=== PATIENT | male | born 1940 | race Caucasian/White ===

== ENCOUNTER 2016-12-05 12:28 | Day surgery (SDC) | payer BC ==
[~2016-12-05 12:28] MED LIST: Acetaminophen TAB* 325 MG PO PRN; Buffered Lidocaine 0.9% SYRIN* 5 ML/SYR SYRINGE INTRADERM ONE
[2016-12-05] MEDS ORDERED: Midazolam* 1 MG/ML 2 ML VIAL (2 MG) ONE (14:19)
[2016-12-05] MEDS ORDERED: Neomycin/Polymy/Dex OPTH.SUSP* MAXITROL 0.1% 5 ML ONE (14:58)
[2016-12-05] MEDS ORDERED: Buffered Lidocaine 0.9% SYRIN* 5 ML/SYR SYRINGE ONE (14:58)
[2016-12-05] MEDS ORDERED: Lidocaine 1% MPF* 2 ML VIAL ONE (14:58)
[2016-12-05] MEDS ORDERED: Proparacaine 0.5% OPHTH.SOL* 15 ML BTL ONE (14:58)
[2016-12-05] MEDS ORDERED: Flurbiprofen 0.03% OPTH.SOL* 2.5 ML BTL ONE (14:58)
[2016-12-05] MEDS ORDERED: Cyclopentolate 1% OPTH.SOL* 2 ML BTL ONE (14:58)
[2016-12-05] MEDS ORDERED: acetaZOLAMIDE TAB* 250 MG ONE (14:58)
[2016-12-05] MEDS ORDERED: Povidone Iodine 5% OPTH* 30 ML BTL ONE (14:58)
[2016-12-05] MEDS ORDERED: Phenylephrine 2.5% OPTH.SOL* 2 ML BTL ONE (14:58)
[2016-12-05] MEDS ORDERED: Lidocaine 1.5% EPI 1:200,000* 30 ML SDV ONE (14:59)
[2016-12-05 15:11] VITALS: BP 121/60
--- NOTE | 2016-12-06 12:18 | OP ---
DATE OF OPERATION: 12/05/16 [facility] DATE OF : 36 SURGEON: Onel Keyes MD PREOPERATIVE DIAGNOSIS: Cataract, left eye. POSTOPERATIVE DIAGNOSIS: Cataract, left eye. OPERATIVE PROCEDURE: Phacoemulsification, left eye with IOL. DESCRIPTION OF PROCEDURE: The patient was brought to the operating room after being given 1/2% Alcaine with epinephrine drops in the preoperative area. The eye was prepped and draped in the usual sterile fashion. Sterile drape and eyelid speculum were placed. Again, topical 1/2% Alcaine with epinephrine was given. A paracentesis incision was made at the 3 o'clock position with the No.75 blade. Clear cornea incision 2.2 x 2.2-mm was created at the 6 o'clock position starting at the anterior limbus using the 2.2-mm keratome. The anterior chamber was irrigated with 0.4 mL of 1% non-preservative intracameral lidocaine and filled with DisCoVisc. A capsulorrhexis was completed using the cystotome and the Utrata forceps. Hydrodissection was performed with balanced salt solution. The lens nucleus was removed with the Phacoemulsification handpiece without incident. Cortex was removed with the irrigation-aspiration handpiece. The capsular bag was re-inflated using DisCoVisc and an [id number] implant was inserted with the shooter. The irrigation-aspiration handpiece was used to remove all residual DisCoVisc. The eye was refilled with balanced salt solution and the wound checked and found to be watertight. Topical Maxitrol drops were given. [id number]/[facility] #: [id number] [facility]
== END 2016-12-05 15:19 | disposition home or self-care (01) ==
LOC: OREAST 12:28
PROVIDERS: ATTEND Specialist
DX: H25.812 Combined forms of age-related cataract, left eye (principal); G20 Parkinson's disease; M33.20 Polymyositis, organ involvement unspecified
CPT/HCPCS: A9270-GY; J2250; V2632

== ENCOUNTER 2016-12-12 07:03 | Day surgery (SDC) | payer BC ==
[~2016-12-12 07:03] MED LIST changes: -Acetaminophen TAB* 325 MG PO PRN
[2016-12-12] MEDS ORDERED: Midazolam* 1 MG/ML 2 ML VIAL (2 MG) ONE (08:53)
[2016-12-12 09:30] VITALS: BP 156/64
[2016-12-12] MEDS ORDERED: Proparacaine 0.5% OPHTH.SOL* 15 ML BTL ONE (12:46)
[2016-12-12] MEDS ORDERED: Povidone Iodine 5% OPTH* 30 ML BTL ONE (12:46)
[2016-12-12] MEDS ORDERED: acetaZOLAMIDE TAB* 250 MG ONE (12:46)
[2016-12-12] MEDS ORDERED: Phenylephrine 2.5% OPTH.SOL* 2 ML BTL ONE (12:46)
[2016-12-12] MEDS ORDERED: Cyclopentolate 1% OPTH.SOL* 2 ML BTL ONE (12:46)
[2016-12-12] MEDS ORDERED: Neomycin/Polymy/Dex OPTH.SUSP* MAXITROL 0.1% 5 ML ONE (12:46)
[2016-12-12] MEDS ORDERED: Flurbiprofen 0.03% OPTH.SOL* 2.5 ML BTL ONE (12:46)
[2016-12-12] MEDS ORDERED: Lidocaine 1% MPF* 2 ML VIAL ONE (12:46)
[2016-12-12] MEDS ORDERED: Buffered Lidocaine 0.9% SYRIN* 5 ML/SYR SYRINGE ONE (12:46)
--- NOTE | 2016-12-12 16:28 | OP ---
DATE OF OPERATION: 12/12/16 - [facility] DATE OF : 36 SURGEON: Onel Keyes M.D. PREOPERATIVE DIAGNOSIS: Cataract right eye. POSTOPERATIVE DIAGNOSIS: Cataract right eye. OPERATIVE PROCEDURE: Phacoemulsification right eye with IOL. DESCRIPTION OF PROCEDURE: The patient was brought to the operating room after being given 1/2% Alcaine with epinephrine drops in the preoperative area. The eye was prepped and draped in the usual sterile fashion. Sterile drape and eyelid speculum were placed. Again, topical 1/2% Alcaine with epinephrine was given. A paracentesis incision was made at the 9 o'clock position with the No.75 blade. Clear cornea incision 2.2 x 2.2-mm was created at the 12 o'clock position starting at the anterior limbus using the 2.2-mm keratome. The anterior chamber was irrigated with 0.4 mL of 1% non-preservative intracameral lidocaine and filled with DisCoVisc. A capsulorrhexis was completed using the cystotome and the Utrata forceps. Hydrodissection was performed with balanced salt solution. The lens nucleus was removed with the Phacoemulsification handpiece without incident. Cortex was removed with the irrigation-aspiration handpiece. The capsular bag was re-inflated using DisCoVisc and an [id number] 17.5 implant was inserted with the shooter. The irrigation-aspiration handpiece was used to remove all residual DisCoVisc. The eye was refilled with balanced salt solution and the wound checked and found to be watertight. Topical Maxitrol drops were given. [id number]/[facility] #: [id number] [facility]
== END 2016-12-12 09:55 | disposition home or self-care (01) ==
LOC: OREAST 07:03
PROVIDERS: ATTEND Specialist
DX: H25.811 Combined forms of age-related cataract, right eye (principal); G20 Parkinson's disease; M33.20 Polymyositis, organ involvement unspecified
CPT/HCPCS: A9270-GY; J2250; V2632

== ENCOUNTER 2017-02-14 16:25 | Inpatient (IN) | payer BC, OTHER ==
[2017-02-14] MEDS ORDERED: NS 0.9% 1000 ML* 1,000 ML IV ONE (20:33)
[2017-02-14] MEDS ORDERED: cefTRIAXone VIAL(*) 1,000 MG in NS 0.9% 50 ML* 50 ML IVPB ONE (20:34)
[2017-02-14 20:51] LABS: Urine Bacteria 1+ (Absent); Urine Bilirubin Negative (Negative); Urine Glucose Negative (Negative); Urine Nitrite Negative (Negative)
[2017-02-14] MEDS ORDERED: cefTRIAXone(*) 1 GM ADVAN ONE (20:51)
[2017-02-14 21:05] LABS: Hematocrit 30 % (42-52); Hemoglobin 10.5 g/dl (14.0-18.0); Mean Corpuscular HGB Conc 35 g/dl (31-36); Mean Corpuscular Hemoglobin 33 pg (27-31); Mean Corpuscular Volume 95 fL (80-94); Mean Platelet Volume 8 um3 (7.4-10.4); Red Blood Count 3.16 10^6/ul (4.0-5.4); Red Cell Distribution Width 14 % (10.5-15); White Blood Count 10.2 10^3/ul (3.5-10.8)
[2017-02-14 21:13] LABS: Add Diff/Slide Review? Slide Review Added; Comments Flag Yes
[2017-02-14 21:20] LABS: Albumin 3.7 g/dL (3.2-5.2); BUN/Creatinine Ratio 13.8 (8-20); C Reactive Protein 141.45 mg/L (< 5.00); Calcium 8.9 mg/dL (8.6-10.3); EGFR African American 17.4 (>60); EGFR Non-African American 13.5 (>60); Globulin 2.9 g/dL (2-4); Potassium 4.2 mmol/L (3.5-5.0); Total Bilirubin 0.6 mg/dL (0.2-1.0); Total Protein 6.6 g/dL (6.4-8.9)
[2017-02-14] MEDS ORDERED: Acetaminophen TAB* 325 MG PO PRN (21:48)
[2017-02-14] MEDS ORDERED: CMCS:Melatonin (NF) 3 MG TAB PO PRN (21:49)
[2017-02-14] MEDS ORDERED: Ondansetron INJ* 2 MG/ML VIAL IV PRN (21:49)
--- NOTE | 2017-02-14 21:50 | ED ---
Andrade Johnson Rebecca, scribed for Mera Jennings MD on 02/14/17 at 2018 . GI/ HPI - HPI Summary HPI Summary: Pt is a 76 y/o M who presents to ED c/o urinary retention. Pt reports that he began experiencing difficulty urinating yesterday with no urine being produced. In the ED, pt had a figueroa put in place, which alleviated sx. Additionally c/o generalized weakness. Denies fever, chills and any pain. Pt was evaluated by Dr. Unger's office yesterday morning for sx and was given Rx for Bactrim of which he has taken 3 doses. No prior similar episodes of urinary retention and no difficulties with prostate enlargement. Is not on blood thinners but is on Methotrexate. - History of Current Complaint Chief Complaint: EDUrogenitalProblems Time Seen by Provider: 02/14/17 19:44 Stated Complaint: UNABLE TO URINATE Hx Obtained From: Patient Onset/Duration: Started Days Ago - Yesterday, Resolved - by figueroa Current Severity: None Pain Intensity: 0 Associated Signs and Symptoms: Positive: Weakness - generalized, Other: - Difficulty urinating. 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 APPENDECTOMY 1952. DEEP BRAIN STIMULATION 2014 [facility] Anesthesia Reactions: No Infectious Disease History: Yes Infectious Disease History: Reports: Hx Hepatitis - A CHILD UNSURE Denies: Hx Human Immunodeficiency Virus (HIV), Traveled Outside the [place] in Last 30 Days - Family History Known Family History: Positive: Hypertension, Other - NO FHx prostate problems - Social History Lives: With Family Alcohol Use: None Substance Use Type: Reports: None Smoking Status (MU): Never Smoked Tobacco Review of Systems Positive: Other - Generazlied weakness. Negative: Fever, Chills Positive: other - Difficulty urinating. Negative: pain All Other Systems Reviewed And Are Negative: Yes Physical Exam - Summary Physical Exam Summary: General: Well appearing, no pain distress, slightly weak getting up Skin: Warm, Skin Color Reflects Adequate Perfusion, Dry Eyes: EOMI, SEGUN ENT: Pharynx normal, TMs normal Neck: Supple, nontender Respiratory: CTA, breath sounds present, no rhonchi, no wheezes, no rales Cardiovascular: RRR, no murmur, no rub, no gallop Abdomen: Soft, nontender, Non-distended, no guarding, no rebound Bowel: Present Musculoskeletal: MIKHAIL, No edema Neuro: Sensory/motor intact, A&Ox3, CN intact 2-12 Psych: Affect/mood appropriate Triage Information Reviewed: Yes Vital Signs On Initial Exam: Initial Vitals Temp Pulse Resp BP Pulse Ox 97.1 F 68 20 106/58 95 02/14/17 16:36 02/14/17 16:36 02/14/17 16:36 02/14/17 16:36 02/14/17 16:36 Vital Signs Reviewed: Yes Diagnostics - Vital Signs Vital Signs Temp Pulse Resp BP Pulse Ox 02/14/17 16:36 97.1 F 68 20 106/58 95 - Laboratory Lab Results: Lab Results 02/14/17 02/14/17 02/14/17 Range/Units 20:13 20:55 20:55 WBC 10.2 (3.5-10.8) 10^3/ul RBC 3.16 L (4.0-5.4) 10^6/ul Hgb 10.5 L (14.0-18.0) g/dl Hct 30 L (42-52) % MCV 95 H (80-94) fL MCH 33 H (27-31) pg MCHC 35 (31-36) g/dl RDW 14 (10.5-15) % Plt Count 204 (150-450) 10^3/ul MPV 8 (7.4-10.4) um3 Neut % (Auto) 85.2 H (38-83) % Lymph % (Auto) 7.2 L (25-47) % [place] % (Auto) 6.4 (1-9) % Eos % (Auto) 0.5 (0-6) % Baso % (Auto) 0.7 (0-2) % Absolute Neuts (auto) 8.7 H (1.5-7.7) 10^3/ul Absolute Lymphs (auto) 0.7 L (1.0-4.8) 10^3/ul Absolute Monos (auto) 0.7 (0-0.8) 10^3/ul Absolute Eos (auto) 0.1 (0-0.6) 10^3/ul Absolute Basos (auto) 0.1 (0-0.2) 10^3/ul Absolute Nucleated RBC 0 10^3/ul Nucleated RBC % 0 Sodium 134 (133-145) mmol/L Potassium 4.2 (3.5-5.0) mmol/L Chloride 103 (101-111) mmol/L Carbon Dioxide 20 L (22-32) mmol/L Anion Gap 11 (2-11) mmol/L BUN 59 H (6-24) mg/dL Creatinine 4.28 H (0.67-1.17) mg/dL Est GFR ( Amer) 17.4 (>60) Est GFR (Non-Af Amer) 13.5 (>60) BUN/Creatinine Ratio 13.8 (8-20) Glucose 100 (70-100) mg/dL Lactic Acid (0.5-2.0) mmol/L Calcium 8.9 (8.6-10.3) mg/dL Total Bilirubin 0.60 (0.2-1.0) mg/dL AST 15 (13-39) U/L ALT 3 L (7-52) U/L Alkaline Phosphatase 35 (34-104) U/L C-Reactive Protein 141.45 H (< 5.00) mg/L Total Protein 6.6 (6.4-8.9) g/dL Albumin 3.7 (3.2-5.2) g/dL Globulin 2.9 (2-4) g/dL Albumin/Globulin Ratio 1.3 (1-3) Urine Color Straw Urine Appearance Clear Urine pH 5.0 (5-9) Ur Specific [place] 1.004 L (1.010-1.030) Urine Protein Negative (Negative) Urine Ketones Negative (Negative) Urine Blood 3+ H (Negative) Urine Nitrate Negative (Negative) Urine Bilirubin Negative (Negative) Urine Urobilinogen Negative (Negative) Ur Leukocyte Esterase Trace H (Negative) Urine WBC (Auto) 1+(6-10/hpf) H (Absent) Urine RBC (Auto) 2+(6-10/hpf) H (Absent) Urine Bacteria 1+ H (Absent) Urine Glucose Negative (Negative) 02/14/17 Range/Units 20:55 WBC (3.5-10.8) 10^3/ul RBC (4.0-5.4) 10^6/ul Hgb (14.0-18.0) g/dl Hct (42-52) % MCV (80-94) fL MCH (27-31) pg MCHC (31-36) g/dl RDW (10.5-15) % Plt Count (150-450) 10^3/ul MPV (7.4-10.4) um3 Neut % (Auto) (38-83) % Lymph % (Auto) (25-47) % [place] % (Auto) (1-9) % Eos % (Auto) (0-6) % Baso % (Auto) (0-2) % Absolute Neuts (auto) (1.5-7.7) 10^3/ul Absolute Lymphs (auto) (1.0-4.8) 10^3/ul Absolute Monos (auto) (0-0.8) 10^3/ul Absolute Eos (auto) (0-0.6) 10^3/ul Absolute Basos (auto) (0-0.2) 10^3/ul Absolute Nucleated RBC 10^3/ul Nucleated RBC % Sodium (133-145) mmol/L Potassium (3.5-5.0) mmol/L Chloride (101-111) mmol/L Carbon Dioxide (22-32) mmol/L Anion Gap (2-11) mmol/L BUN (6-24) mg/dL Creatinine (0.67-1.17) mg/dL Est GFR ( Amer) (>60) Est GFR (Non-Af Amer) (>60) BUN/Creatinine Ratio (8-20) Glucose (70-100) mg/dL Lactic Acid 0.5 (0.5-2.0) mmol/L Calcium (8.6-10.3) mg/dL Total Bilirubin (0.2-1.0) mg/dL AST (13-39) U/L ALT (7-52) U/L Alkaline Phosphatase (34-104) U/L C-Reactive Protein (< 5.00) mg/L Total Protein (6.4-8.9) g/dL Albumin (3.2-5.2) g/dL Globulin (2-4) g/dL Albumin/Globulin Ratio (1-3) Urine Color Urine Appearance Urine pH (5-9) Ur Specific [place] (1.010-1.030) Urine Protein (Negative) Urine Ketones (Negative) Urine Blood (Negative) Urine Nitrate (Negative) Urine Bilirubin (Negative) Urine Urobilinogen (Negative) Ur Leukocyte Esterase (Negative) Urine WBC (Auto) (Absent) Urine RBC (Auto) (Absent) Urine Bacteria (Absent) Urine Glucose (Negative) Result Diagrams: 02/14/17 20:55 02/14/17 20:55 Lab Statement: Any lab studies that have been ordered have been reviewed, and results considered in the medical decision making process. Re-Evaluation - Re-Evaluation First Eval Re-Evaluation Time: 21:30 Comment: Discussed plan to admit with the pt and his . The pt is feeling well. GIGU Course/Dx - Course Course Of Treatment: 76 yo in acute renal failure due to urinary obstruction, case discussed with Dr. Schultz who will keep the pt - Diagnoses Provider Diagnoses: Renal failure - Physician Notifications Discussed Care Of Patient With: Osmar Schultz Time Discussed With Above Provider: 21:30 Instructed by Provider To: Other - Accepts pt for admission Discharge - Discharge Plan Condition: Stable Disposition: ADMITTED TO [facility] Referrals: Mauricio Unger MD [Primary Care Provider] - The documentation as recorded by the Andrade chowdhury Rebecca accurately reflects the service I personally performed and the decisions made by me, Mera Jennings MD.
[2017-02-14] MEDS: NS 0.9% 1000 ML* 1,000 ML IV SCH (23:39)
[2017-02-15 00:46] LABS: Hematocrit 28 % (42-52); Hemoglobin 9.4 g/dl (14.0-18.0)
[2017-02-15] MEDS: Carbidopa/Levodop CR 50/200(*) TAB.CR PO SCH ×3 (01:12→20:43)
--- NOTE | 2017-02-15 04:58 | HP ---
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 He became unable to urinate at all today around 1400 and returned to his PCP's office where a bladder scan found urinary retention volume of ~1600 prompting referral to [facility]. He denies F/C, sweats, or other issues. He denies HX of similar. A figueroa was placed during triage yielding 1800cc of urine, since emptied. Upon my arrival, his figueroa bag contained another 2100cc. PMedHx Parkinsonism w/ deep brain stimulator implantation polymyositis depression erectile dysfunction Ambulatory Orders Carbidopa/Levodop 25/100 MG(*) 1.5 tab PO QID 01/15/15 Carbidopa/Levodop 25/100 MG(*) [Sinemet 25/100 TAB(*)] 1 tab PO 0900 01/15/15 Folic Acid 1 mg PO DAILY 01/15/15 Methotrexate TAB* 2.5 mg PO WEEKLY 01/15/15 Multiple Vitamin 1 tab PO ONCE 01/15/15 Oxycodone W/ Acetaminophen [Oxycodone/Acetaminophen] 5 - 325 mg PO Q6H PRN 01/15 Rasagiline (NF) [Azilect (NF)] 1 mg PO DAILY 01/15/15 Ropinirole Hydrochloride [Ropinirole HCl] 2 mg PO QID 01/15/15 Sertraline HCl [Zoloft] 50 mg PO DAILY 11/30/16 Sildenafil (NF) [Viagra (NF)] 50 mg PO DAILY 11/30/16 Mtkrbxjio-Rjerrbxy-Pissudjamx [Carbidopa/Levodopa/Entaca 50-200-200 mg] 1 tab PO BEDTIME 02/14/17 Carbidopa/Levodop 25/100 MG(*) 25 - 100 mg PO AC 02/15/17 Allergies No Known Allergies Allergy (Verified 12/12/16 07:39) PSurgHx deep brain stimulator implantation OU cataract extractions appendecomy L-spine surgery SocHx: no tobacco, alcohol, or recreational drugs; lives with his ; 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; full code status FamHx: unknown ROS: as above, otherwise reviewed and all were negative vitals: Vital Signs Temp 36.8 C 02/15/17 02:58 Pulse 66 02/15/17 02:58 Resp 16 02/15/17 02:58 BP 137/50 02/15/17 02:58 Pulse Ox 96 02/15/17 02:58 Intake & Output 02/14/17 02/14/17 02/15/17 11:59 23:59 11:59 Intake Total 1050 Output Total 2150 Balance -1100 Weight 68.447 kg Intake: IV Fluids 1000 IVPB 50 Output: Figueroa 2150 Constitutional: NAD, normally developed, overweight elderly white male HEENM: atraumatic; sclera/conjunctiva: non-icteric/clear; hearing: clinically intact; oropharynx: clear, mucosa moist Neck: soft tissue: normal; thyroid: normal Pulmonary: clear to auscultation bilaterally, good aeration, no accessory muscle use CV: RR/RR, normal S1S2, no carotid bruit, no jugular venous distention, 2+ B DP/ PT, no edema Abdominal: soft, non-distended, non-tender, no rebound/guarding/rigidity, normoactive bowel sounds, no hepatosplenomegaly or masses, no costovertebral angle tenderness Musculoskeletal: general: grossly intact; gait: stable Integumental: normal appearance and texture of exposed skin Psychiatric orientation: AA&O to PPS affect: calm mood: pleasant eye contact: good content: reliable responses: timely insight: good Testing: Lab Results 02/14/17 02/14/17 02/14/17 Range/Units 20:13 20:55 20:55 WBC 10.2 (3.5-10.8) 10^3/ul RBC 3.16 L (4.0-5.4) 10^6/ul Hgb 10.5 L (14.0-18.0) g/dl Hct 30 L (42-52) % MCV 95 H (80-94) fL MCH 33 H (27-31) pg MCHC 35 (31-36) g/dl RDW 14 (10.5-15) % Plt Count 204 (150-450) 10^3/ul MPV 8 (7.4-10.4) um3 Neut % (Auto) 85.2 H (38-83) % Lymph % (Auto) 7.2 L (25-47) % [place] % (Auto) 6.4 (1-9) % Eos % (Auto) 0.5 (0-6) % Baso % (Auto) 0.7 (0-2) % Absolute Neuts (auto) 8.7 H (1.5-7.7) 10^3/ul Absolute Lymphs (auto) 0.7 L (1.0-4.8) 10^3/ul Absolute Monos (auto) 0.7 (0-0.8) 10^3/ul Absolute Eos (auto) 0.1 (0-0.6) 10^3/ul Absolute Basos (auto) 0.1 (0-0.2) 10^3/ul Absolute Nucleated RBC 0 10^3/ul Nucleated RBC % 0 Sodium 134 (133-145) mmol/L Potassium 4.2 (3.5-5.0) mmol/L Chloride 103 (101-111) mmol/L Carbon Dioxide 20 L (22-32) mmol/L Anion Gap 11 (2-11) mmol/L BUN 59 H (6-24) mg/dL Creatinine 4.28 H (0.67-1.17) mg/dL Est GFR ( Amer) 17.4 (>60) Est GFR (Non-Af Amer) 13.5 (>60) BUN/Creatinine Ratio 13.8 (8-20) Glucose 100 (70-100) mg/dL Lactic Acid (0.5-2.0) mmol/L Calcium 8.9 (8.6-10.3) mg/dL Total Bilirubin 0.60 (0.2-1.0) mg/dL AST 15 (13-39) U/L ALT 3 L (7-52) U/L Alkaline Phosphatase 35 (34-104) U/L C-Reactive Protein 141.45 H (< 5.00) mg/L Total Protein 6.6 (6.4-8.9) g/dL Albumin 3.7 (3.2-5.2) g/dL Globulin 2.9 (2-4) g/dL Albumin/Globulin Ratio 1.3 (1-3) Urine Color Straw Urine Appearance Clear Urine pH 5.0 (5-9) Ur Specific [place] 1.004 L (1.010-1.030) Urine Protein Negative (Negative) Urine Ketones Negative (Negative) Urine Blood 3+ H (Negative) Urine Nitrate Negative (Negative) Urine Bilirubin Negative (Negative) Urine Urobilinogen Negative (Negative) Ur Leukocyte Esterase Trace H (Negative) Urine WBC (Auto) 1+(6-10/hpf) H (Absent) Urine RBC (Auto) 2+(6-10/hpf) H (Absent) Urine Bacteria 1+ H (Absent) Urine Glucose Negative (Negative) 02/14/17 02/15/17 Range/Units 20:55 00:34 WBC (3.5-10.8) 10^3/ul RBC (4.0-5.4) 10^6/ul Hgb 9.4 L (14.0-18.0) g/dl Hct 28 L (42-52) % MCV (80-94) fL MCH (27-31) pg MCHC (31-36) g/dl RDW (10.5-15) % Plt Count (150-450) 10^3/ul MPV (7.4-10.4) um3 Neut % (Auto) (38-83) % Lymph % (Auto) (25-47) % [place] % (Auto) (1-9) % Eos % (Auto) (0-6) % Baso % (Auto) (0-2) % Absolute Neuts (auto) (1.5-7.7) 10^3/ul Absolute Lymphs (auto) (1.0-4.8) 10^3/ul Absolute Monos (auto) (0-0.8) 10^3/ul Absolute Eos (auto) (0-0.6) 10^3/ul Absolute Basos (auto) (0-0.2) 10^3/ul Absolute Nucleated RBC 10^3/ul Nucleated RBC % Sodium (133-145) mmol/L Potassium (3.5-5.0) mmol/L Chloride (101-111) mmol/L Carbon Dioxide (22-32) mmol/L Anion Gap (2-11) mmol/L BUN (6-24) mg/dL Creatinine (0.67-1.17) mg/dL Est GFR ( Amer) (>60) Est GFR (Non-Af Amer) (>60) BUN/Creatinine Ratio (8-20) Glucose (70-100) mg/dL Lactic Acid 0.5 (0.5-2.0) mmol/L Calcium (8.6-10.3) mg/dL Total Bilirubin (0.2-1.0) mg/dL AST (13-39) U/L ALT (7-52) U/L Alkaline Phosphatase (34-104) U/L C-Reactive Protein (< 5.00) mg/L Total Protein (6.4-8.9) g/dL Albumin (3.2-5.2) g/dL Globulin (2-4) g/dL Albumin/Globulin Ratio (1-3) Urine Color Urine Appearance Urine pH (5-9) Ur Specific [place] (1.010-1.030) Urine Protein (Negative) Urine Ketones (Negative) Urine Blood (Negative) Urine Nitrate (Negative) Urine Bilirubin (Negative) Urine Urobilinogen (Negative) Ur Leukocyte Esterase (Negative) Urine WBC (Auto) (Absent) Urine RBC (Auto) (Absent) Urine Bacteria (Absent) Urine Glucose (Negative) Impression: 76M presenting with acute renal failure 2nd acute urinary retention 2nd combined Parkinsonism, BPH, & acute cystitis developing post-obstructive diuresis DIAGNOSIS & PLAN Primary acute renal failure 2nd acute urinary retention 2nd combined Parkinsonism, BPH, & acute cystitis : developing post-obstructive diuresis : 4H urine total divided by 4, set IVF to this number Q4H : IVFs as above : ceftriaxone IV : terazosin 5mg HS : finasteride 5mg QAM : figueroa to gravity, nursing education re: figueroa care : outpatient follow up with urology : urine CX : supportive care Secondary Parkinsonism w/ deep brain stimulator implantation : continue carbo/levodopa : continue ropinirole polymyositis : hold methotrexate 02/15 2nd acute cystitis to avoid further immunosuppression depression : continue sertraline Admission Rational: observation for post-obstructive diuresis DVTp: heparin SQ Code Status: full HCP:
[2017-02-15] MEDS: Omeprazole CAP* 20 MG PO SCH (05:48)
[2017-02-15] MEDS: rOPINIRole TAB* 1 MG PO SCH ×4 (05:49→17:33)
[2017-02-15] MEDS: Carbidopa/Levodop 25/100 MG TAB(*) PO SCH ×5 (05:49→17:33)
[2017-02-15] MEDS: Heparin VIAL(*) 5000 UNITS/ML VIAL (FIVE THOUSAND) SUBCUT SCH ×3 (05:52→20:43)
[2017-02-15 06:09] LABS: Hematocrit 29 % (42-52); Hemoglobin 9.9 g/dl (14.0-18.0); Mean Corpuscular HGB Conc 35 g/dl (31-36); Mean Corpuscular Hemoglobin 33 pg (27-31); Mean Corpuscular Volume 95 fL (80-94); Mean Platelet Volume 8 um3 (7.4-10.4); Red Cell Distribution Width 14 % (10.5-15); White Blood Count 7.1 10^3/ul (3.5-10.8)
[2017-02-15 06:23] LABS: BUN/Creatinine Ratio 15.2 (8-20); Calcium 8.2 mg/dL (8.6-10.3); EGFR African American 23.5 (>60); EGFR Non-African American 18.3 (>60); Potassium 4.5 mmol/L (3.5-5.0)
[2017-02-15] MEDS: LEVODOPA PO SCH (08:58)
[2017-02-15] MEDS: CARBIDOPA PO SCH (08:58)
[2017-02-15] MEDS: Finasteride TAB* 5 MG PO SCH (08:58)
[2017-02-15] MEDS: NS 0.9% 1000 ML* 1,000 ML IV SCH (11:51)
--- NOTE | 2017-02-15 17:29 | PN ---
Subjective Date of Service: 02/15/17 Interval History: Patient seen and examined at bedside. Pt states that he is feeling well. Denies fever, chills, shortness of breath, chest discomfort, N/V/D. Family History: Unchanged from Admission Social History: Unchanged from Admission Past Medical History: Unchanged from Admission Objective Active Medications: Acetaminophen (Tylenol Tab*) 650 mg PO Q6H PRN Reason: FEVER/PAIN Carbidopa/Levodopa (Sinemet 25/100 Tab(*)) 1.5 tab PO 0600,1200,1500,1800 NIKHIL Carbidopa/Levodopa (Sinemet Cr 50/200(*)) 1 tab.cr PO BEDTIME NIKHIL Carbidopa/Levodopa (Sinemet 25/100 Tab(*)) 1 tab PO DAILY@0900 NIKHIL Finasteride (Proscar Tab*) 5 mg PO DAILY NIKHIL Heparin Sodium (Porcine) (Heparin Vial(*)) 5,000 units SUBCUT Q8HR NIKHIL Sodium Chloride (Ns 0.9% 1000 Ml*) 1,000 mls @ 75 mls/hr IV PER RATE NIKHIL Ceftriaxone Sodium 1,000 mg/ (Sodium Chloride) 50 mls @ 200 mls/hr IVPB Q24H NIKHIL Melatonin (Melatonin (Nf)) 3 mg PO BEDTIME PRN; Protocol Reason: Sleep Pto Non Formulary Med (Carbidopa/Levodopa Er 25/100mg ) 1 dose PO DAILY@0730 NIKHIL Omeprazole (Prilosec Cap*) 20 mg PO DAILY@0600 NIKHIL Ondansetron HCl (Zofran Inj*) 4 mg IV Q6H PRN Reason: NAUSEA Ropinirole HCl (Requip Tab*) 2 mg PO 0600,1200,1500,1800 NIKHIL Terazosin HCl (Hytrin Cap*) 5 mg PO BEDTIME NIKHIL Vital Signs 02/15/17 15:20 Temperature 98.1 F Pulse Rate 84 Respiratory 16 Rate Blood Pressure 138/58 (mmHg) O2 Sat by Pulse 99 Oximetry Oxygen Devices in Use Now: None Appearance: NAD, laying in bed Ears/Nose/Mouth/Throat: Mucous Membranes Moist Respiratory: Symmetrical Chest Expansion and Respiratory Effort, Clear to Auscultation Cardiovascular: NL Sounds; No Murmurs; No JVD, RRR Abdominal: NL Sounds; No Tenderness; No Distention Extremities: No Edema Skin: No Rash or Ulcers Neurological: Alert and Oriented x 3, NL Muscle Strength and Tone Lines/Tubes/Other Access: Clean, Dry and Intact Martinez - patent, draining clear yellow urine Nutrition: Taking PO's Result Diagrams: 02/15/17 05:28 02/15/17 05:28 Assess/Plan/Problems-Billing Assessment: Mr. Byers is a 76 yo male with PMH significant for parkinson's disease, polymyositis, BPH and depression who presented to the emergency room with complaints of increased difficulty with urination and was found to have acute renal failure secondary to urinary retention. - Patient Problems (1) Acute renal failure Comment: - Suspect secondary to parkinsonism, BPH, and cystitis - Also with post-obstructive diuresis - Creatinine slowly improving - Continue IVFs and urinary cathter - Continue ceftriaxone, terazosin and finasteride - Will need to follow-up with urology outpatient (2) Urinary retention Code(s): R33.9 - RETENTION OF URINE, UNSPECIFIED SNOMED Code(s): 227937698 Comment: - Suspect secondary to parkinsonism, BPH, and cystitis - Continue urinary cathter - Continue terazosin and finasteride - Outpatient urology follow-up (3) UTI (urinary tract infection) Comment: - No leukocytosis and afebrile - Urine culture and blood cultures pending - Continue ceftriaxone (4) Parkinson disease Code(s): G20 - PARKINSON'S DISEASE SNOMED Code(s): 70226596 Comment: - With deep brain stimulator implantation - Continue Sinmet and ropinirole (5) Polymyositis Code(s): M33.20 - POLYMYOSITIS, ORGAN INVOLVEMENT UNSPECIFIED SNOMED Code(s): 83321110 Comment: - Hold methotrexate secondary to acute cystitis (6) Depression Code(s): F32.9 - MAJOR DEPRESSIVE DISORDER, SINGLE EPISODE, UNSPECIFIED SNOMED Code(s): 26054537 Comment: - Continue sertraline (7) DVT prophylaxis Code(s): DGX0227 - SNOMED Code(s): 025963906 Comment: - SQ heparin (8) Full code status Code(s): Z78.9 - OTHER SPECIFIED HEALTH STATUS SNOMED Code(s): 623853125 Status and Disposition: Inpatient. Discharge to home when medically stable, possibly in the AM if renal function is improving.
[2017-02-15] MEDS ORDERED: cefTRIAXone VIAL(*) 1,000 MG in NS 0.9% 50 ML* 50 ML IVPB SCH (20:30)
[2017-02-15] MEDS ORDERED: Terazosin CAP* 5 MG PO SCH (21:00)
[2017-02-16] MEDS: NS 0.9% 1000 ML* 1,000 ML IV SCH ×2 (00:23→07:52)
[2017-02-16] MEDS: rOPINIRole TAB* 1 MG PO SCH (05:45)
[2017-02-16] MEDS: Carbidopa/Levodop 25/100 MG TAB(*) PO SCH ×2 (05:46→09:31)
[2017-02-16] MEDS: Omeprazole CAP* 20 MG PO SCH (05:47)
[2017-02-16] MEDS: Heparin VIAL(*) 5000 UNITS/ML VIAL (FIVE THOUSAND) SUBCUT SCH (05:47)
[2017-02-16 07:07] LABS: Hematocrit 28 % (42-52); Hemoglobin 9.4 g/dl (14.0-18.0); Mean Corpuscular HGB Conc 34 g/dl (31-36); Mean Corpuscular Hemoglobin 33 pg (27-31); Mean Corpuscular Volume 97 fL (80-94); Mean Platelet Volume 8 um3 (7.4-10.4); Red Blood Count 2.87 10^6/ul (4.0-5.4); Red Cell Distribution Width 13 % (10.5-15); White Blood Count 5.3 10^3/ul (3.5-10.8)
[2017-02-16 07:16] LABS: BUN/Creatinine Ratio 18.8 (8-20); Calcium 8.1 mg/dL (8.6-10.3); Potassium 4.6 mmol/L (3.5-5.0)
[2017-02-16 07:33] VITALS: BP 137/54
[2017-02-16] MEDS: CARBIDOPA PO SCH (07:53)
[2017-02-16] MEDS: LEVODOPA PO SCH (07:53)
[2017-02-16] MEDS: Finasteride TAB* 5 MG PO SCH (09:31)
--- NOTE | 2017-02-16 10:04 | PN ---
Subjective Date of Service: 02/16/17 Interval History: Pt is feeling well. He wants to go home. He has not yet had the figueroa teaching. We reviewed the course of action over the next couple weeks. He denies any abdominal pain or diarrhea. No CP or SOB. Family History: Unchanged from Admission Social History: Unchanged from Admission Past Medical History: Unchanged from Admission Objective Active Medications: Acetaminophen (Tylenol Tab*) 650 mg PO Q6H PRN PRN Reason: FEVER/PAIN Carbidopa/Levodopa (Sinemet 25/100 Tab(*)) 1.5 tab PO 0600,1200,1500,1800 [facility] Last Admin: 02/16/17 05:46 Dose: 1.5 tab Carbidopa/Levodopa (Sinemet Cr 50/200(*)) 1 tab.cr PO BEDTIME [facility] Last Admin: 02/15/17 20:43 Dose: 1 tab.cr Carbidopa/Levodopa (Sinemet 25/100 Tab(*)) 1 tab PO DAILY@0900 [facility] Last Admin: 02/16/17 09:31 Dose: 1 tab Finasteride (Proscar Tab*) 5 mg PO DAILY [facility] Last Admin: 02/16/17 09:31 Dose: 5 mg Heparin Sodium (Porcine) (Heparin Vial(*)) 5,000 units SUBCUT Q8HR [facility] Last Admin: 02/16/17 05:47 Dose: 5,000 units Sodium Chloride (Ns 0.9% 1000 Ml*) 1,000 mls @ 100 mls/hr IV PER RATE [facility] Last Admin: 02/16/17 07:52 Dose: 175 mls/hr Ceftriaxone Sodium 1,000 mg/ (Sodium Chloride) 50 mls @ 200 mls/hr IVPB Q24H [facility] Last Admin: 02/15/17 20:41 Dose: 200 mls/hr Melatonin (Melatonin (Nf)) 3 mg PO BEDTIME PRN; Protocol PRN Reason: Sleep Pto Non Formulary Med (Carbidopa/Levodopa Er 25/100mg ) 1 dose PO DAILY@0730 [facility] Last Admin: 02/16/17 07:53 Dose: 1 dose Omeprazole (Prilosec Cap*) 20 mg PO DAILY@0600 [facility] Last Admin: 02/16/17 05:47 Dose: 20 mg Ondansetron HCl (Zofran Inj*) 4 mg IV Q6H PRN PRN Reason: NAUSEA Ropinirole HCl (Requip Tab*) 2 mg PO 0600,1200,1500,1800 [facility] Last Admin: 02/16/17 05:45 Dose: 2 mg Terazosin HCl (Hytrin Cap*) 5 mg PO BEDTIME [facility] Last Admin: 02/15/17 20:43 Dose: 5 mg Vital Signs 02/15/17 02/15/17 02/15/17 15:20 19:19 20:00 Temperature 98.1 F 97.5 F Pulse Rate 84 69 Respiratory 16 20 16 Rate Blood Pressure 138/58 112/38 (mmHg) O2 Sat by Pulse 99 98 Oximetry 02/15/17 02/16/17 02/16/17 23:37 03:18 07:32 Temperature 97.9 F 97.6 F 97.6 F Pulse Rate 67 79 69 Respiratory 14 16 17 Rate Blood Pressure 120/51 103/59 137/54 (mmHg) O2 Sat by Pulse 97 99 97 Oximetry 02/16/17 08:00 Temperature Pulse Rate Respiratory 16 Rate Blood Pressure (mmHg) O2 Sat by Pulse Oximetry Oxygen Devices in Use Now: None Appearance: Elderly male sitting up in bed, NAD, mild rest tremor noted. Eyes: No Scleral Icterus Ears/Nose/Mouth/Throat: Mucous Membranes Moist Respiratory: Symmetrical Chest Expansion and Respiratory Effort, Clear to Auscultation Cardiovascular: NL Sounds; No Murmurs; No JVD, RRR, No Edema Abdominal: NL Sounds; No Tenderness; No Distention Extremities: No Clubbing, Cyanosis Skin: No Rash or Ulcers, No Nodules or Sclerosis Neurological: Alert and Oriented x 3 Result Diagrams: 02/16/17 06:17 02/16/17 06:17 Additional Lab and Data: Lab Results 02/14/17 02/14/17 02/14/17 Range/Units 20:13 20:55 20:55 WBC 10.2 (3.5-10.8) 10^3/ul RBC 3.16 L (4.0-5.4) 10^6/ul Hgb 10.5 L (14.0-18.0) g/dl Hct 30 L (42-52) % MCV 95 H (80-94) fL MCH 33 H (27-31) pg MCHC 35 (31-36) g/dl RDW 14 (10.5-15) % Plt Count 204 (150-450) 10^3/ul MPV 8 (7.4-10.4) um3 Neut % (Auto) 85.2 H (38-83) % Lymph % (Auto) 7.2 L (25-47) % [place] % (Auto) 6.4 (1-9) % Eos % (Auto) 0.5 (0-6) % Baso % (Auto) 0.7 (0-2) % Absolute Neuts (auto) 8.7 H (1.5-7.7) 10^3/ul Absolute Lymphs (auto) 0.7 L (1.0-4.8) 10^3/ul Absolute Monos (auto) 0.7 (0-0.8) 10^3/ul Absolute Eos (auto) 0.1 (0-0.6) 10^3/ul Absolute Basos (auto) 0.1 (0-0.2) 10^3/ul Absolute Nucleated RBC 0 10^3/ul Nucleated RBC % 0 Sodium 134 (133-145) mmol/L Potassium 4.2 (3.5-5.0) mmol/L Chloride 103 (101-111) mmol/L Carbon Dioxide 20 L (22-32) mmol/L Anion Gap 11 (2-11) mmol/L BUN 59 H (6-24) mg/dL Creatinine 4.28 H (0.67-1.17) mg/dL Est GFR ( Amer) 17.4 (>60) Est GFR (Non-Af Amer) 13.5 (>60) BUN/Creatinine Ratio 13.8 (8-20) Glucose 100 (70-100) mg/dL Lactic Acid (0.5-2.0) mmol/L Calcium 8.9 (8.6-10.3) mg/dL Total Bilirubin 0.60 (0.2-1.0) mg/dL AST 15 (13-39) U/L ALT 3 L (7-52) U/L Alkaline Phosphatase 35 (34-104) U/L C-Reactive Protein 141.45 H (< 5.00) mg/L Total Protein 6.6 (6.4-8.9) g/dL Albumin 3.7 (3.2-5.2) g/dL Globulin 2.9 (2-4) g/dL Albumin/Globulin Ratio 1.3 (1-3) Urine Color Straw Urine Appearance Clear Urine pH 5.0 (5-9) Ur Specific [place] 1.004 L (1.010-1.030) Urine Protein Negative (Negative) Urine Ketones Negative (Negative) Urine Blood 3+ H (Negative) Urine Nitrate Negative (Negative) Urine Bilirubin Negative (Negative) Urine Urobilinogen Negative (Negative) Ur Leukocyte Esterase Trace H (Negative) Urine WBC (Auto) 1+(6-10/hpf) H (Absent) Urine RBC (Auto) 2+(6-10/hpf) H (Absent) Urine Bacteria 1+ H (Absent) Urine Glucose Negative (Negative) 02/14/17 Range/Units 20:55 WBC (3.5-10.8) 10^3/ul RBC (4.0-5.4) 10^6/ul Hgb (14.0-18.0) g/dl Hct (42-52) % MCV (80-94) fL MCH (27-31) pg MCHC (31-36) g/dl RDW (10.5-15) % Plt Count (150-450) 10^3/ul MPV (7.4-10.4) um3 Neut % (Auto) (38-83) % Lymph % (Auto) (25-47) % [place] % (Auto) (1-9) % Eos % (Auto) (0-6) % Baso % (Auto) (0-2) % Absolute Neuts (auto) (1.5-7.7) 10^3/ul Absolute Lymphs (auto) (1.0-4.8) 10^3/ul Absolute Monos (auto) (0-0.8) 10^3/ul Absolute Eos (auto) (0-0.6) 10^3/ul Absolute Basos (auto) (0-0.2) 10^3/ul Absolute Nucleated RBC 10^3/ul Nucleated RBC % Sodium (133-145) mmol/L Potassium (3.5-5.0) mmol/L Chloride (101-111) mmol/L Carbon Dioxide (22-32) mmol/L Anion Gap (2-11) mmol/L BUN (6-24) mg/dL Creatinine (0.67-1.17) mg/dL Est GFR ( Amer) (>60) Est GFR (Non-Af Amer) (>60) BUN/Creatinine Ratio (8-20) Glucose (70-100) mg/dL Lactic Acid 0.5 (0.5-2.0) mmol/L Calcium (8.6-10.3) mg/dL Total Bilirubin (0.2-1.0) mg/dL AST (13-39) U/L ALT (7-52) U/L Alkaline Phosphatase (34-104) U/L C-Reactive Protein (< 5.00) mg/L Total Protein (6.4-8.9) g/dL Albumin (3.2-5.2) g/dL Globulin (2-4) g/dL Albumin/Globulin Ratio (1-3) Urine Color Urine Appearance Urine pH (5-9) Ur Specific [place] (1.010-1.030) Urine Protein (Negative) Urine Ketones (Negative) Urine Blood (Negative) Urine Nitrate (Negative) Urine Bilirubin (Negative) Urine Urobilinogen (Negative) Ur Leukocyte Esterase (Negative) Urine WBC (Auto) (Absent) Urine RBC (Auto) (Absent) Urine Bacteria (Absent) Urine Glucose (Negative) Assess/Plan/Problems-Billing Mr. Byers is a 76 yo male with PMHx significant for parkinson's disease, polymyositis, BPH and depression who presented to the emergency room with complaints of increased difficulty with urination and was found to have acute renal failure secondary to urinary retention. - Patient Problems (1) Acute renal failure Current Visit: Yes Status: Acute Comment: ARF secondary to urinary retention. ARF is resolving. His creatinine is down to 1.6 today. He can be discharged home today with follow up labs 02/19/17. (2) Urinary retention Current Visit: Yes Status: Acute Code(s): R33.9 - RETENTION OF URINE, UNSPECIFIED SNOMED Code(s): 490918432 Comment: Likely secondary to BPH +/- parkinson's. He will be d/shoaib home with the figueroa in place. Continue proscar. I have asked the patient to follow up with urology in 10-14 days for urodynamic testing. (3) UTI (urinary tract infection) Current Visit: Yes Status: Acute Comment: The patient's urinalysis is abnormal but the culture is not back yet. Will d/c pt home on vantin to complete 7 days of Abx therapy. (4) Polymyositis Current Visit: Yes Status: Chronic Code(s): M33.20 - POLYMYOSITIS, ORGAN INVOLVEMENT UNSPECIFIED SNOMED Code(s): 58850921 Comment: Resume methotrexate next week. (5) Parkinson disease Current Visit: Yes Status: Chronic Code(s): G20 - PARKINSON'S DISEASE SNOMED Code(s): 97637791 Comment: Continue sinemet and requip. Pt has deep brain stimulator. (6) Depression Current Visit: Yes Status: Chronic Code(s): F32.9 - MAJOR DEPRESSIVE DISORDER, SINGLE EPISODE, UNSPECIFIED SNOMED Code(s): 94721098 Comment: Continue sertraline. (7) DVT prophylaxis Current Visit: Yes Status: Acute Code(s): NJC3011 - SNOMED Code(s): 874042907 Comment: SQ heparin (8) Full code status Current Visit: Yes Status: Acute Code(s): Z78.9 - OTHER SPECIFIED HEALTH STATUS SNOMED Code(s): 953669581 Status and Disposition: d/c home
--- NOTE | 2017-02-16 13:25 | DS ---
CC: Dr. Unger; Sydnee Manning NP; Dr. Hinds * DISCHARGE SUMMARY: DATE OF ADMISSION: 02/14/17 DATE OF DISCHARGE: 02/16/17 PRIMARY CARE PROVIDER: Dr. Unger. ENGINEER FISHING VESSEL: Sydnee Manning NP. NEUROLOGIST: Dr. Hinds. PRINCIPAL DIAGNOSIS: Acute renal failure secondary to urinary retention. SECONDARY DIAGNOSES: 1. Parkinson's. 2. Polymyositis. 3. Depression. 4. Erectile dysfunction. DISCHARGE MEDICATIONS: 1. Sinemet CR 50/200 one tab p.o. at bedtime. 2. Sinemet 25/100 kex-kpm-f-half tabs at 0600, 1200, 1500, and 1800. 3. Sinemet 25/100 one tab p.o. at 0900. 4. Percocet 5/325 one tab p.o. q.6 hours p.r.n. pain. 5. Multivitamin one tab p.o. daily. 6. Methotrexate 2.5 mg p.o. weekly. 7. Folic acid 1 mg p.o. daily. 8. Viagra 50 mg p.o. daily. 9. Sertraline 50 mg p.o. daily. 10. ReQuip 2 mg p.o. q.i.d. 11. Finasteride 5 mg p.o. daily (new). 12. Vantin 200 mg p.o. b.i.d. x11 doses. HOSPITAL COURSE: Mr. Byers is a 76-year-old male who presented to the emergency room on 02/14/17 with complaints of difficulty with urination. The patient states that approximately a couple of days prior to this he began to have an issue with urination. He noted that it was difficult to urinate and that it hurt. Prior to this, however, the patient's notes that he had been having abdominal pain. The patient saw a provider at his primary care provider's office the day prior to admission, at which time he was diagnosed with a urinary tract infection despite no urinalysis being obtained. The patient was unable to urinate following this; therefore, returned to his primary care provider's office the following day where a bladder scan found approximately 1600 mL of urine within the bladder. The patient was sent to the emergency room. In the ER, a Martinez catheter was placed and 1800 mL of urine was emptied from the bladder. The patient was also found to have acute renal failure with a creatinine of 4.28 on admission. The patient had a Martinez catheter placed and with this his creatinine began to trend down. The day prior to admission his creatinine was down to 3.29 and on the day of discharge his creatinine is down to 1.60. The patient will be discharged home with the Martinez catheter in place. He is being taught Martinez care prior to discharge. The patient will need to follow up with Urology in 10 to 14 days, I suspect for urodynamic testing. The suspicion is that the patient's BPH has led to the development of the urinary retention. He does describe signs of BPH including frequent nocturnal awakening to go to the bathroom as well as intermittent incontinence where he has leaked urine. The patient will have followup blood work on 02/19/17 to ensure his creatinine has normalized. Additionally, there was concern for UTI on admission. His urinalysis is abnormal with trace leukocyte esterase and 1+ wbc, and 1+ bacteria. The culture on this is pending at the time of this dictation. He is being discharged home on Vantin 200 mg p.o. twice daily for 11 more doses, which will complete a 7-day course of antibiotic therapy. The patient's primary care provider will need to follow up on the results of the culture to ensure, if positive, that he is on the correct antibiotic therapy. Also noted during this hospitalization is that the patient's hemoglobin is lower than his baseline. At baseline, the patient's hemoglobin is about 12.5. On admission, his hemoglobin was down to 10.5. It subsequently trended down to 9.4 on the day of discharge. I suspect some of the decrease in H and H is related to hemodilution as the patient did receive copious IV fluids for his acute renal failure. A followup CBC will be obtained on 02/19/17. The patient has been instructed to monitor his stools for any signs of bleeding. In terms of the patient's chronic medical conditions, he is being maintained on his usual home medication regimen without any change. FOLLOWUP CONCERNS: The patient is being discharged home today, 02/16/17. ACTIVITY: Activity level is as tolerated. DIET: Regular. CONDITION ON DISCHARGE: Stable. FOLLOWUP: The patient should follow up with Dr. Unger in the next 4 to 7 days. The patient will need to call the [facility] to set up an appointment for 10 to 14 days. TIME SPENT: Thirty-five minutes were spent discharging this patient. [id number]/[facility] #: [id number] MEGHA
== END 2017-02-16 11:15 | disposition home or self-care (01) | DRG 460 ==
LOC: ED 16:25 → MED 21:35 → OBSVTOIN 02-15 13:24
PROVIDERS: ADMIT Hospitalist; ATTEND Hospitalist
DX: N17.8 Other acute kidney failure (principal); M33.20 Polymyositis, organ involvement unspecified; G20 Parkinson's disease; F32.9 Major depressive disorder, single episode, unspecified; N52.9 Male erectile dysfunction, unspecified; N40.1 Benign prostatic hyperplasia with lower urinary tract symptoms; N30.90 Cystitis, unspecified without hematuria; R35.8 Other polyuria; R33.8 Other retention of urine; Z79.891 Long term (current) use of opiate analgesic; Z79.899 Other long term (current) drug therapy
CPT/HCPCS: 36415; 80048; 80053; 81003; 81015; 83605; 85014; 85018; 85025; 85027; 86140; 87040; 87086; A9270-GY; J0696; J1644

== ENCOUNTER 2017-04-15 07:52 | Observation (INO) | payer BC, MEDICARE ==
--- NOTE | 2017-04-09 20:24 | HP ---
CC: Dr. Radha Hinds; Mauricio Unger MD * ADMITTING HISTORY AND PHYSICAL: DATE OF ADMISSION: 04/15/17 ADMITTING DIAGNOSES: 1. Prostate enlargement. 2. Urinary retention. PLANNED PROCEDURE: Transurethral resection of prostate. SURGEON: Dr. Smith. HISTORY OF PRESENT ILLNESS: Ravi Espinosa is a 76-year-old gentleman with a history of Parkinson's disease, who was evaluated for urinary retention. He has originally had a Martinez catheter placed for a residual of 1500 cc. Evaluation had revealed a moderately enlarged prostate with few bladder diverticula noted. He has had several voiding trials in the last couple of months and each time has not been able to urinate and has required reinsertion of the Martinez catheter. 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 I have had a detailed discussion with Mr. Espinosa regarding the management options, which include leaving a Martinez catheter indwelling or intermittent catheterization or an attempt at transurethral resection of the prostate. I have explained to him that given the history of Parkinson's disease, he is certainly at higher risk for urinary incontinence after a transurethral resection procedure and also discussed the possibility of persistent retention if the bladder contractility is impaired. PAST MEDICAL HISTORY: Significant for: 1. Parkinson's disease. 2. Polymyositis. PAST SURGICAL HISTORY: Significant for: 1. Appendectomy. 2. Back surgery. 3. Deep brain stimulation surgery for Parkinson's in 2015. MEDICATIONS: On admission: 1. Proscar 5 mg a day. 2. Flomax 0.4 mg, which has now been discontinued because of the presence of the catheter. 3. Carb/levo tablets 25/100 raq-fgk-s-half tablets 4 times a day. 4. Rasagiline 1 mg tablet daily. 5. Ropinirole 2 mg 4 tablets daily. 6. Sertraline 50 mg daily. 7. Methotrexate 2.5 mg 6 tablets once a week. 8. Viagra p.r.n. ALLERGIES: No known drug allergies. PHYSICAL EXAMINATION GENERAL: Reveals a pleasant elderly gentleman who is alert and oriented. VITAL SIGNS: Blood pressure is 114/68, pulse 60 per minute, oxygen saturation 96% on room air. LUNGS: Clear bilaterally. CARDIOVASCULAR: Regular rate and rhythm. S1 and S2. ABDOMEN: Soft without masses. A Martinez catheter is in place draining clear urine. IMPRESSION AND PLAN: A 76-year-old gentleman with Parkinson's and urinary retention. Planned procedure is transurethral resection of prostate. [id number]/[facility] #: [id number] MTDD
[~2017-04-15 07:52] MED LIST changes: +Gentamicin ADULT (*) 160 MG in NS 0.9% 100 ML* 100 ML IVPB ONE
[2017-04-15] MEDS ORDERED: cefTRIAXone(*) 2 GM ADDV.VIAL IVPB ONE (08:05)
[2017-04-15] MEDS ORDERED: Buffered Lidocaine 0.9% SYRIN* 5 ML/SYR SYRINGE ONE (08:05)
[2017-04-15] MEDS ORDERED: Midazolam* 1 MG/ML 2 ML VIAL (2 MG) ONE ×2 (10:54→12:31)
[2017-04-15] MEDS ORDERED: fentaNYL* 50 MCG/ML 2 ML VIAL (100 MCG VIAL) ONE (10:54)
[2017-04-15] MEDS ORDERED: Propofol* 10 MG/ML 20 ML BTL IV PUSH ONE (12:35)
[2017-04-15] MEDS ORDERED: Levofloxacin 500 MG IVPREMIX(* 500 MG/100 ML BAG IVPB ONE (12:39)
[2017-04-15] MEDS ORDERED: Furosemide IV* 10 MG/ML 2 ML VIAL (20 MG) ONE (12:48)
[2017-04-15] MEDS ORDERED: DiMENhydriNATE IV* 50 MG/ML VIAL IV PUSH PRN (12:52)
[2017-04-15] MEDS ORDERED: oxyCODONE/Acetamin 5/325 MG* TAB PO PRN (12:52)
[2017-04-15] MEDS ORDERED: fentaNYL* 50 MCG/ML 2 ML VIAL (100 MCG VIAL) IV PRN (12:52)
[2017-04-15] MEDS ORDERED: Acetaminophen TAB* 325 MG PO PRN (15:06)
[2017-04-15] MEDS ORDERED: rOPINIRole TAB* 1 MG PO SCH (17:00)
[2017-04-15] MEDS: Carbidopa/Levodop 25/100 MG TAB(*) PO SCH (17:57)
[2017-04-15] MEDS: rOPINIRole TAB* 1 MG PO SCH (17:58)
[2017-04-15] MEDS: Docusate CAP* 100 MG PO SCH (20:17)
[2017-04-15] MEDS ORDERED: Carbidopa/Levodop CR 50/200(*) TAB.CR PO SCH (21:00)
[2017-04-16 05:50] LABS: BUN/Creatinine Ratio 26.3 (8-20); Calcium 8.8 mg/dL (8.6-10.3); EGFR Non-African American 73.1 (>60); Potassium 4.2 mmol/L (3.5-5.0)
[2017-04-16] MEDS ORDERED: Carbidopa/Levodop 25/100 MG TAB(*) PO SCH (06:00)
[2017-04-16] MEDS ORDERED: Folic Acid TAB* 1 MG PO SCH (06:00)
[2017-04-16] MEDS ORDERED: RASAGILINE 1 MG PO SCH (06:00)
[2017-04-16] MEDS ORDERED: Sertraline* 50 MG TAB PO SCH (06:00)
[2017-04-16] MEDS ORDERED: Vitamin THERAPEUTIC TAB PO SCH (06:00)
[2017-04-16] MEDS: Carbidopa/Levodop 25/100 MG TAB(*) PO SCH ×2 (06:10→11:31)
[2017-04-16] MEDS: rOPINIRole TAB* 1 MG PO SCH ×2 (06:12→11:32)
[2017-04-16] MEDS ORDERED: Magnesium Hydroxide LIQ* 30 ML UDC PO ONE (08:15)
--- NOTE | 2017-04-16 08:34 | OP ---
CC: Dr. Mauricio Unger; Dr. Radha Hinds * DATE OF OPERATION: 04/15/17 - ROOM #352 DATE OF : 36 SURGEON: Boom Smith MD ANESTHESIOLOGIST: Jimmy Headley MD ANESTHESIA: Spinal. PRE-OP DIAGNOSES: 1. Benign prostatic enlargement. 2. Urinary retention. POST-OP DIAGNOSES: 1. Benign prostatic enlargement. 2. Urinary retention. OPERATIVE PROCEDURE: 1. Transurethral resection of prostate. 2. Transurethral incision of bladder neck. INDICATIONS: Ravi Espinosa is a 76-year-old gentleman with a history of urinary retention, who has failed multiple voiding trials. He is now being brought in for transurethral resection of prostate. COMPLICATIONS: None. POSTOPERATIVE CONDITION: Stable. DESCRIPTION OF PROCEDURE: After induction of spinal anesthesia, the patient was placed in dorsal lithotomy position. There was a brief hold because the patient has had deep vein stimulation surgery and this required that his implant be deactivated, which was done once the device was brought in from his house. Once this was done, the trans-urethral resection of prostate was commenced. Using the resectoscope, the floor of the prostate was first resected , then the lateral lobe tissue and then the anterior tissue. Care was taken not to resect distal to the veru in an effort to avoid any injury to the sphincter. The resected tissue was removed from the bladder using the Ellik evacuator. Next, using a right angle knife electrode, transurethral incision of the bladder neck was carried out at the 5 and 7 o'clock positions in an effort to minimize the chance of postoperative bladder neck contracture. Hemostasis appeared satisfactory at the end of the procedure. 24-Pashto Martinez was introduced without difficulty and connected to a drainage bag. The patient tolerated the procedure satisfactorily and was transferred back to the recovery area in stable condition. [id number]/[facility] #: [id number] MTDD
[2017-04-16] MEDS: Docusate CAP* 100 MG PO SCH (08:58)
[2017-04-16] MEDS ORDERED: cefTRIAXone(*) 2 GM in NS 0.9% 100 ML* 100 ML IVPB ONE (09:00)
[2017-04-16 10:02] VITALS: BP 142/51
--- NOTE | 2017-04-17 12:42 | DS ---
CC: Mauricio Unger MD; Radha Hinds MD * DISCHARGE SUMMARY: DATE OF ADMISSION: 04/15/17 DATE OF DISCHARGE: 04/16/17 ADMITTING DIAGNOSES: 1. Prostate enlargement. 2. Urinary retention. SURGICAL PROCEDURES ON THIS ADMISSION: Transurethral resection of prostate. HOSPITAL COURSE: Ravi Espinosa is a 76-year-old gentleman with a history of urinary retention who has failed multiple voiding trial. He would like to try and have a transurethral resection of prostate and I have explained the increased risk of the procedure given his neurological condition. For details, please see admitting history and physical. On 04/15, Mr. Espinosa underwent transurethral resection of prostate under spinal anesthesia. Surgery was smooth and uneventful. He was monitored postoperatively overnight and was evaluated on 04/16. The Martinez catheter was draining reasonably clear urine, and he was discharged with home a Martinez catheter in place for followup as per outpatient protocol. [id number]/[facility] #: [id number] MTDD
== END 2017-04-16 11:45 | disposition home or self-care (01) ==
LOC: OR 07:52 → SSU 14:49
PROVIDERS: ADMIT Urology; ATTEND Urology
PROC: 0VT08ZZ Resection of Prostate, Via Natural or Artificial Opening Endoscopic (ICD-10-PCS; principal; 2017-04-15 09:30)
DX: N40.1 Benign prostatic hyperplasia with lower urinary tract symptoms (principal); R33.8 Other retention of urine; C61 Malignant neoplasm of prostate; G20 Parkinson's disease; M33.20 Polymyositis, organ involvement unspecified; Z79.899 Other long term (current) drug therapy
CPT/HCPCS: 36415; 80048; 88305; 96365; A9270-GY; G0378; J0696; J1580; J1940; J1956; J2250; J2704; J3010